=== PATIENT | female | born 1965 | race Two or more races ===

== ENCOUNTER 2023-04-23 16:16 | Inpatient (IN) | payer OTHER ==
[~2023-04-23] VITALS: Ht 165.1 cm; Wt 134.7 kg
[2023-04-23] MEDS ORDERED: TOPROL XL25 M1 (17:47)
[2023-04-23] MEDS ORDERED: ESTROVEN MAX400 MCG PO (17:48)
[2023-04-23] MEDS ORDERED: ENDOMETRIN100 MG (17:49)
[2023-04-23] MEDS ORDERED: ESTROGEN-METHY1 EACH (17:49)
[2023-04-24] MEDS ORDERED: LOPRESSOR25 MG (14:39)
[2023-04-30] MEDS ORDERED: PROTONIX40 MG PO (13:04)
[2023-04-30] MEDS ORDERED: INTESTINEX680 M1 PO (13:04)
[2023-04-30] MEDS ORDERED: AMOX-CLAV 875-1 EAC1 PO (13:04)
[2023-04-30] MEDS ORDERED: TOPROL XL25 M1 PO (13:04)
== END 2023-04-30 14:48 | disposition home or self-care (01) | DRG 392 ==
LOC: ER 16:16 → SURH 18:44
PROVIDERS: ADMIT Surgery; ATTEND Surgery
PROC: 02HV33Z Insertion of Infusion Device into Superior Vena Cava, Percutaneous Approach (ICD-10-PCS; principal; 2023-04-25)
DX: K57.32 Diverticulitis of large intestine without perforation or abscess without bleeding (principal); R10.32 Left lower quadrant pain; Z20.822 Contact with and (suspected) exposure to COVID-19